=== PATIENT | male | born 1975 | race Caucasian/White ===

== ENCOUNTER 2022-12-13 17:00 | Outpatient (CLI) | payer BC | END 2022-12-13 17:01 | disposition home or self-care (01) | LOC: SLEEPLAB 17:00 | PROVIDERS: ATTEND Family Medicine | DX: G47.33 Obstructive sleep apnea (adult) (pediatric) (principal); F41.9 Anxiety disorder, unspecified; F32.A Depression, unspecified; R06.83 Snoring; R53.83 Other fatigue | CPT/HCPCS: 95800 ==